=== PATIENT | male | born 1960 | race Caucasian/White ===

== ENCOUNTER 2017-05-19 17:23 | Emergency (ER) | payer OTHER | END 2017-05-19 18:21 | disposition other institution (70) | LOC: ED 17:23 | DX: Z02.89 Encounter for other administrative examinations (principal) ==

== ENCOUNTER 2017-05-19 17:23 | Emergency (ER) | payer OTHER ==
[~2017-05-19] VITALS: Ht 188 cm; Wt 81.6 kg
[2017-05-19 17:29] VITALS: Ht 188 cm; Wt 81.6 kg
[2017-05-19 18:20] VITALS: BP 116/81
== END 2017-05-19 18:21 | disposition other institution (70) ==
LOC: ED 17:23
DX: Z02.89 Encounter for other administrative examinations (principal); E11.9 Type 2 diabetes mellitus without complications; J45.909 Unspecified asthma, uncomplicated
CPT/HCPCS: 82962

== ENCOUNTER 2017-12-03 21:24 | Emergency (ER) | payer OTHER | END 2017-12-03 22:49 | disposition other institution (70) | LOC: ED 21:24 | DX: Z02.89 Encounter for other administrative examinations (principal) ==

== ENCOUNTER 2017-12-03 21:24 | Emergency (ER) | payer OTHER ==
[~2017-12-03] VITALS: Ht 188 cm; Wt 81.6 kg
[2017-12-03 21:37] VITALS: BP 115/77; Ht 188 cm; Wt 81.6 kg
== END 2017-12-03 22:49 | disposition other institution (70) ==
LOC: ED 21:24
DX: E11.65 Type 2 diabetes mellitus with hyperglycemia (principal); I50.9 Heart failure, unspecified; J45.909 Unspecified asthma, uncomplicated
CPT/HCPCS: 82962

== ENCOUNTER 2018-12-27 01:13 | Emergency (ER) | payer OTHER | END 2018-12-27 02:02 | disposition other institution (70) | LOC: ED 01:13 | DX: Z02.89 Encounter for other administrative examinations (principal) ==

== ENCOUNTER 2018-12-27 01:13 | Emergency (ER) | payer OTHER ==
[~2018-12-27] VITALS: Ht 188 cm; Wt 81.6 kg
[2018-12-27 01:18] VITALS: BP 133/83; Ht 188 cm; Wt 81.6 kg
== END 2018-12-27 02:02 | disposition other institution (70) ==
LOC: ED 01:13
DX: E11.65 Type 2 diabetes mellitus with hyperglycemia (principal); F17.210 Nicotine dependence, cigarettes, uncomplicated; J45.909 Unspecified asthma, uncomplicated; Z13.89 Encounter for screening for other disorder; I50.9 Heart failure, unspecified
CPT/HCPCS: 82962